=== PATIENT | female | born 1985 | race Two or more races ===

== ENCOUNTER 2025-07-14 12:26 | Emergency (ER) | payer BC, SELFPAY ==
[2025-07-14 12:41] VITALS: BP 131/86; PULSE 95; RESP 18; TEMP 37.6; O2SAT 100
--- NOTE | 2025-07-14 12:52 | ED.ABDPAIN ---
HPI - Abdominal Pain General Time Seen by Provider: 12:54 Date Seen: 07/14/25 Chief Complaint: Abdominal Pain Stated Complaint: Abdominal pain, dizziness Time Seen by Provider: 07/14/25 12:37 Source: patient and RN notes reviewed Mode of arrival: ambulatory Limitations: no limitations History of Present Illness HPI narrative: This 39-year-old female is coming into the ER with lower pelvic pain for about a week. It awoke her overnight at 2:00 a.m. with sharp and severe pain. She has tried azo but is not change her symptoms. She is feeling nauseated with this. She has not vomited yet, was able to eat earlier today. Has noted some dysuria and urinary frequency, azo did not improve her symptoms. She had her last menstrual period about 2 weeks ago, has had a tubal ligation. She has a history of ovarian cysts, this pain is more severe. She has not noted any fevers. Pain really intensified overnight, she feels the pain in the lower pelvic area on both sides, feels pain going down into her vaginal area. She denies any vaginal discharge. She is here with her life partner, the only person she has been with, there is no concern for any STIs, no history of STIs, again, no vaginal discharge. She noted a little softer stool this morning but has not had any changes in bowel habits otherwise. MD elicited complaint: abdominal pain Related Data Allergies Allergy/AdvReac Type Severity Reaction Status Date / Time No Known Drug Allergies Allergy Verified 07/14/25 14:52 Review of Systems Status of ROS Reports: 6 or more systems reviewed and unremarkable except as noted in History and below [facility] Medical History (Updated 07/14/25 @ 16:32 by Renae Cordoba MD) tubal ligation planned Social History Smoking Status: Never smoker Do you use any of these nicotine containing products: None How often do you have a drink containing alcohol: never AUDIT-C Alcohol total score: 0 Non-prescribed substance use: denies use Exam Const: Vital Signs, click to edit/add: Vital Signs - 24 hr 07/14/25 12:41 07/14/25 13:11 07/14/25 15:22 Temperature 99.7 F H 97.2 F L Pulse Rate [Pulse Oximeter] 95 79 Respiratory Rate 18 18 Blood Pressure [Ri ght Upper Arm] 131/86 108/69 Pulse Oximetry 100 98 99 Oxygen Delivery Me thod Room Air Room Air This 39-year-old female is alert, interactive, looks uncomfortable, sitting on the edge of the bed tentatively in exam room 6. Sclera clear, extraocular muscles intact, symmetrical facial function, speech normal. Lungs are clear, good air entry, no wheezing crackles, no tachypnea, no accessory muscle use. CV regular rate and rhythm, no murmur, normal S1-S2, no S3-S4. Abdomen is soft, normal bowel sounds, no organomegaly noted. She is not tender with the exception of the central pelvic area. Pain is more centrally over the suprapubic area, does extend a little bit both to right and left lower quadrants but seems to be more central over the suprapubic or pelvic area. Bimanual exam deferred at this point. No inguinal adenopathy or masses noted. Do note patient's temperature on arrival but she is wearing a stocking cap. Documenting provider has reviewed patient's vital signs: yes Course Course ED Course: Patient is having significant pain, LMP was about 2 weeks ago, could be consistent with ovarian cyst in need to ensure no torsion if there would be an ovarian cyst. Other potential etiologies are urinary system issues like UTIs or potential kidney stone but does not seem is likely given her presentation. Pelvic inflammatory disease less likely given her history but will be considered. Atypical presentation of something like appendicitis will be considered. We are going to start with a pelvic ultrasound, full complement of labs including urine. If need be, the understand that we may need to proceed to CT imaging. We will establish an IV, start with some Zofran and Toradol for nausea and pain control. If Toradol is not sufficient, will move to narcotic pain management. Reevaluation(s) Time of Reevaluation #1: 14:03 Reevaluation #1: Have reviewed with patient there is a small cyst but nothing that would see responsible for her symptoms. She is just getting her IV fluids, Zofran and Toradol right now. Will see if these help her. She has slight elevation of her neutrophils. Urinalysis has not been collected yet. We will proceed with CT abdomen pelvis with IV contrast for further evaluation of her pain. Time of Reevaluation #2: 16:24 Reevaluation #2: Patient is feeling better after Toradol. We have reviewed that her imaging of her abdomen pelvis CT and ultrasound are not showing any acute pathology. There is no definitive pathology on her labs. We did discuss the urinalysis is not definitively showing a UTI but if urine culture were to grow anything, we will start her on antibiotic. Will send her with Toradol, she will take from [facility]. Do not want to mask anything in this patient and it did seem to help her. She does note that her mom had ovarian or uterine cancer, reviewed with her that there is no apparent acute abnormality on the pelvic ultrasound that would be consistent with anything concerning of that nature at this time. I have requested that she follow up in clinic. We have discussed signs and symptoms for return. Vital Signs Vital signs: Initial Vital Signs Temperature 99.7 F H 07/14/25 12:41 Temperature Source Temporal Artery Scan 07/14/25 12:41 Pulse Rate 95 07/14/25 12:41 Respiratory Rate 18 07/14/25 12:41 Blood Pressure 131/86 07/14/25 12:41 Blood Pressure Mean 101 07/14/25 12:41 Pulse Oximetry 100 07/14/25 12:41 Oxygen Delivery Method Room Air 07/14/25 12:41 Vital Signs Temperature 99.7 F H 07/14/25 12:41 Pulse Rate 95 07/14/25 12:41 Respiratory Rate 18 07/14/25 12:41 Blood Pressure 131/86 07/14/25 12:41 Pulse Oximetry 100 07/14/25 12:41 Oxygen Delivery Method Room Air 07/14/25 12:41 Temperature 97.2 F L 07/14/25 15:22 Pulse Rate 79 07/14/25 15:22 Respiratory Rate 18 07/14/25 15:22 Blood Pressure 108/69 07/14/25 15:22 Pulse Oximetry 99 07/14/25 15:22 Oxygen Delivery Method Room Air 07/14/25 15:22 Medications Administered Medications: Discontinued Medications Generic Name Dose Route Start Last Admin Trade Name Freq PRN Reason Stop Dose Admin Sodium Chloride 1,000 mls @ 500 mls/hr 07/14/25 13:13 07/14/25 14:05 0.9 % Sodium Chloride 1000 Ml IV 07/14/25 15:12 500 mls/hr .Q2H INEZ Administration Ketorolac Tromethamine 15 mg 07/14/25 13:11 07/14/25 14:07 Ketorolac 15 Mg/Ml Inj IVP 07/14/25 13:12 15 mg ONCE ONE Administration Ondansetron HCl 4 mg 07/14/25 13:11 07/14/25 14:07 Ondansetron 2 Mg/Ml Inj IVP 07/14/25 13:12 4 mg ONCE ONE Administration MDM - Abdominal Pain Lab Data Attestation: I reviewed the patient's lab results. Labs: Lab Results 07/14/25 07/14/25 Range/Units 13:22 14:19 WBC 10.74 (4.50-11.00) K/uL RBC 4.35 (4.00-5.20) m/uL Hgb 12.6 (12.0-16.0) gm/dL Hct 38.5 (33.0-51.0) % MCV 89 (80-100) fL MCH 29 (26-34) pg MCHC 33 (32-36) gm/dL RDW Coeff of Sia 13.0 (11.5-15.5) % Plt Count 218 (140-440) K/uL Neut % (Auto) 74.2 H (42.0-72.0) % Lymph % (Auto) 18.6 L (20-44) % [place] % (Auto) 5.7 (0.0-11.0) % Eos % (Auto) 0.9 (0.0-7.0) % Baso % (Auto) 0.3 (0.0-3.0) % Neut # (Auto) 8.00 H (1.7-7.0) K/uL Lymph # (Auto) 2.00 (0.90-2.90) K/uL [place] # (Auto) 0.60 (0.00-0.90) K/UL Eos # (Auto) 0.10 (0.00-0.50) K/uL Baso # (Auto) 0.03 (0.00-0.30) K/uL Abs Immat Gran (auto) 0.03 (0.00-0.30) K/uL Imm/Tot Granulo (auto) 0.3 % Sodium 137 (135-149) mmol/L Potassium 3.9 (3.6-5.1) mmol/L Chloride 99 (96-114) mmol/L Carbon Dioxide 23 (20-32) mmol/L Anion Gap 15 (7-15) mEq/L BUN 13 (5-24) mg/dL Creatinine 0.7 (0.5-1.5) mg/dL Estimated GFR 112 ml/min Glucose 97 (60-115) mg/dL Lactate 0.6 (0.5-1.9) mmol/L Calcium 9.5 (8.4-10.6) mg/dL Total Bilirubin 0.4 (0.1-1.5) mg/dL AST 49 H (12-35) U/L ALT 65 H (4-35) U/L Alkaline Phosphatase 56 (40-150) U/L C-Reactive Protein 0.8 (0.5-1.0) mg/dL Total Protein 8.4 H (6.0-8.3) g/dL Albumin 4.8 (3.3-5.0) g/dL Urine Color Yellow (Yellow) Urine Appearance Clear (Clear) Urine pH 7.0 (5.0-8.5) Ur Specific [place] 1.015 (1.000-1.030) Urine Protein Negative (Negative) Urine Glucose (UA) Negative (Negative) Urine Ketones Negative (Negative) Urine Blood 1+ A (Negative) Urine Nitrite Negative (Negative) Urine Bilirubin Negative (Negative) Urine Urobilinogen 0.2 (0.2-1.0) Ur Leukocyte Esterase 1+ A (Negative) Urine RBC 0-2 (0-2) Urine WBC 5-10 A (0-5) Ur Squamous Epith Cells None (None-Few) Urine Bacteria Few A (None) Urine HCG, Qual Negative (Negative) Imaging Data US pelvis: Attestation: I have reviewed the pertinent imaging results. Radiologist's impression: Patient: GONZALO PRAKASH Facility:?[facility] Patient ID:?[id number] Site Patient ID:?[id number]. Site :?[id number] Study:?US-Pelvis -07/14/2025 1:49:22 PM Ordering Physician:Richi Macdonald Final Report: INDICATION: Severe pelvic pain. TECHNIQUE: Ultrasound pelvis transabdominal and transvaginal for better assessment or to better visualize the endometrium. Real-time sonographic images with spectral and color Doppler imaging of the ovaries were obtained. COMPARISON: None. FINDINGS: Uterus: 8.7 x 4.5 x 4.4 cm. Normal echotexture of the myometrium. No masses. Endometrium: Transvaginal imaging was performed to better evaluate the endometrium. Endometrial thickness measures 9 mm. No sign of endometrial mass or fluid. Right ovary 3.3 x 2.9 x 2.6 centimeters. Left ovary 3.1 x 1.6 x 2.8 centimeter. Tiny 1.7 centimeter simple appearing left paraovarian cyst. No ovarian or adnexal masses. Normal arterial and venous blood flow is demonstrated in both ovaries. Cul-de-sac: Trace free fluid. IMPRESSION: Tiny 1.7 centimeter simple appearing left paraovarian cyst. Otherwise, unremarkable pelvic ultrasound for age. No torsion. Dictated by Roly Cunningham MD @ 07/14/2025 1:55:49 PM (Electronic Signature) CT scan - abdomen: Attestation: I have reviewed the pertinent imaging results. Radiologist's impression: Patient: GONZALO PRAKASH Facility:?[facility] Patient ID:?[id number] Site Patient ID:?[id number]. Site :?[id number] Study:?CT-Abdomen/Pelvis 78CC ISOVUE 370-07/14/2025 2:54:08 PM Ordering Physician:Richi Macdonald Final Report: INDICATION: Severe pelvic pain. TECHNIQUE: CT abdomen and pelvis acquired with 78 cc Omnipaque 350 IV contrast. COMPARISON: None. FINDINGS: Lower chest: Scattered atelectasis. Liver: Unremarkable. Normal in size and attenuation. No suspicious masses. Gallbladder and bile ducts: Prior cholecystectomy. Pancreas: Unremarkable. No mass or inflammation. Spleen: Unremarkable. Normal in size. No masses. Adrenal glands: Unremarkable. No nodules. Kidneys: Unremarkable. No suspicious masses, stones, or hydronephrosis. GI tract: Colonic diverticulosis without diverticulitis. Normal in caliber. No sign of mass or inflammation. Normal appendix. Vasculature: Abdominal aorta is normal in caliber. Mesenteric arteries are patent. Lymph nodes: No lymphadenopathy. Peritoneum/Abdominal Wall: Unremarkable. No sign of mass or infiltration. No free air or significant free fluid. Pelvis: Tiny right corpus luteal cyst with trace free fluid in the pelvis likely physiologic. Bones: Unremarkable for age. IMPRESSION: No acute intra-abdominal/pelvic abnormality. Tiny right corpus luteal cyst with trace free fluid in the pelvis likely physiologic. Please note that all CT scans at this facility use dose modulation, iterative reconstruction, and/or weight-based dosing when appropriate to reduce radiation dose to as low as reasonably achievable. Dictated by Roly Cunningham MD @ 07/14/2025 3:16:09 PM (Electronic Signature) Discharge Plan Discharge Clinical Impression: Abdominal pain, suprapubic Patient Disposition: Home, Self-Care Condition: Stable Instructions: Pelvic Pain in Women (ED) Additional Instructions: Use Tylenol 1000 mg 3 times a day baseline for pain. Can use the Toradol 10 mg 1 every 6 hours as needed for extra pain control, take with food to protect your stomach. Request that you get a follow-up clinic appointment within the next week. We will let you know if the urine culture does grow anything and start antibiotics if needed. Right now on the labs and imaging done with CT of abdomen and pelvis and pelvic ultrasound, there is no identifiable cause of your symptoms. If you develop fevers, have worsening pain, have new or concerning symptoms, please seek re-evaluation. Activity Level: Activity as Tolerated Discharge Diet: Regular Follow Up/Referrals: Provider,Not a Local [Primary Care Provider, Family Practice] Stand Alone Forms: [employer] Info Instructions
[2025-07-14 13:11] VITALS: O2SAT 98
--- NOTE | 2025-07-14 13:11 | CRLHL7_ITS ---
For Patients: As a result of the Century Cures Act, medical imaging exams and procedure reports are released immediately into your electronic medical record. You may view this report before your referring provider. If you have questions, please contact your health care provider. INDICATION: Severe pelvic pain. TECHNIQUE: Ultrasound pelvis transabdominal and transvaginal for better assessment or to better visualize the endometrium. Real-time sonographic images with spectral and color Doppler imaging of the ovaries were obtained. COMPARISON: None. FINDINGS: Uterus: 8.7 x 4.5 x 4.4 cm. Normal echotexture of the myometrium. No masses. Endometrium: Transvaginal imaging was performed to better evaluate the endometrium. Endometrial thickness measures 9 mm. No sign of endometrial mass or fluid. Right ovary 3.3 x 2.9 x 2.6 centimeters. Left ovary 3.1 x 1.6 x 2.8 centimeter. Tiny 1.7 centimeter simple appearing left paraovarian cyst. No ovarian or adnexal masses. Normal arterial and venous blood flow is demonstrated in both ovaries. Cul-de-sac: Trace free fluid. IMPRESSION: Tiny 1.7 centimeter simple appearing left paraovarian cyst. Otherwise, unremarkable pelvic ultrasound for age. No torsion. Dictated by Roly Cunningham MD @ 07/14/2025 1:55:49 PM (Electronically Signed)
--- OUTSIDE RECORDS SUMMARY | 2025-07-14 13:25 | XMS_ITS | Clinical Summary ---
Author Organization [facility] Address [address] [place] [id number] Care Team Providers Care Budget Engineer Name Role Phone Sherri Mary Primary Care Provider [phone] Allergies No known active allergies Medications methylPREDNISol one (Medrol (South)) 4 mg tabletIndicatio ns:Tailor's bunionette, right,Foot pain, right Take by mouth as instructed per packaging. 21 Tablet Active Additional Information Patient not taking.Reported on 07/14/2025 Active Problems Problem Noted Date Diagnosed Date Prediabetes 03/08/2025 Pelvic pain 03/08/2025 Tremor 03/08/2025 Hepatic adenoma 03/08/2025 Tailor's bunionette, right 03/08/2025 Liver lesion 09/15/2022 Overview (09/15/2022): Needs follow up MRI in Aug 2023. Sherri Mary PA-C, Family Medicine.....................09/15/2022 11:37 AM Gastritis Resolved Problems Problem Noted Date Diagnosed Date Resolved Date Pap smear for cervical cancer screening 10/17/2023 03/08/2025 Overview (10/17/2023): 09/2023 NIL/HPV negative. Plan: Pap/HPV due 09/2028. No Significant Past Medical History 04/13/2021 03/08/2025 Encounters Date Type Department Care Team Description 07/14/2025 11:35 AM [employer]AL [employer] Office Visit [facility] [address] [place] [address] Kim Ernandez PA UTI (x1 week, burning, frequency, pain, using azo x2 days) 07/14/2025 Travel from Last 3 Months Immunizations Immunization Administration Dates Next Due Influenza Virus, Unspecified 07/12/2015,05/14/20 14,05/29/2013 Influenza, IIV4 05/28/2020 Influenza, IIV4 (=>6mos) MDV 07/12/2015 Tdap 05/28/2020 Family History Medical History Relation Name Comments Cancer-breast Maternal Aunt Cancer-ovarian Mother Relation Name Status Comments Maternal Aunt Mother Social History Tobacco Use Types Packs/Day Years Used Date Smoking Tobacco: Never Smokeless Tobacco: Never Alcohol Use Standard Drinks/Week Comments Not Currently 0 (1 standard drink = 0.6 oz pur e alcohol) PHQ-2 Answer Date Recorded PHQ-2 TOTAL SCORE 0 03/05/2025 Social Connections Answer Date Recorded Do you often feel lonely or isolated from those around you? 0 03/05/2025 Financial Resource Strain Answer Date R ecorded Difficulty of Paying Living Expenses 3 03/05/2025 Difficulty of Paying Living Expenses Not on file 03/05/2025 Food Insecurity Answer Date Recorded Do you worry your food will run out before you are able to buy more? 1 03/05/2025 Transportation Needs Answer Date Record ed Does lack of transportation keep you from medica l appointments? 1 03/05/2025 Does lack of transportation keep you from work, meetings or getting things that you need? 1 03/05/2025 Housing Stability Answer Date Recorded What is your housing situation today? 1 03/05/2025 Utilities Answer Date Recorded Do you have trouble paying f or utilities (for example, heat, electricity, water, phone)? 1 03/05/2025 Comments No Sex and Gender Information Value Date Recorded Sex Assigned at Not on file Legal Sex Female 4:42 PM CDT Gender Identity Not on file Sexual Orientation Not on file Occupation Industry Job Start Date Job End Date homemaker Not on file Not on file Not on file Obstetrics History Para Term AB IAB SAB Ectopic Multiple Livin g Live Births 2 2 2 Date Outcome GA Total Labor Labor/2nd/3rd Weight Sex Type Anes PTL Sera A1 A5 Name Clin Term Vag Term C-Secti on, B Last Filed Vital Signs Vital Sign Reading Time Taken Comments Blood Pressure 118/79 07/14/2025 11:45 AM [employer] Pulse 98 07/14/2025 11:45 AM [employer] Temperature 35.9 C (96.7 F) 09/14/2022 10:37 AM [employer] Respiratory Rate 18 09/14/2022 10:37 AM [employer] Oxygen Saturation 97% 07/14/2025 11:45 AM [employer] Inhaled Oxygen Concentration - - Weight 72.1 kg (159 lb) 07/14/2025 11:45 AM [employer] Height 158 cm (5' 2.21) 03/05/2025 2:35 PM CDT Body Mass Index 28.89 03/05/2025 2:35 PM CDT Plan of Treatment Health Maintenance Due Date Last Done Comments HIV for age 15-65 12/29/1999 Hepatitis C screening for age 18-79 2002 Hepatitis B series for 19+ (1 of 3 - 19+ 3-dose series) 12/29/2003 HPV series for age 9-45 (1 - 3-dose SCDM series) 12/29/2011 COVID-19 vaccine series ( season) 2025 Influenza Vaccine (#1) 2025 0, 07/12/2015, 07/12/2015, Additional history exists BMI (ht and wt on same day) for age 18+ 03/05/2026 03/05/2025, 10/09/2023, 09/14/2022, Additional history exists Depression screening for age 12+ 03/05/2026 03/05/2025, 10/09/2023, 04/13/2021, Additional history exists Pap test for age 21-65 10/09/2028 , 10/09/2023, 05/28/2020 Tetanus booster 05/28/2030 05/28/2020 RSV vaccine for adults or (1 - 1-dose 75+ series) 12/29/2059 Pneumococcal series for age 6-49 Aged Out No longer eligible based on patient's age to complete this topic Procedures Procedure Name Priority Date/Time Associated Diagnosis Comments HPV HIGH RISK Routine 10/09/2023 8:43 AM [employer] Screening for malignant neoplasm of cervix from Last 3 Months or Most Recently Relevant to Health Maintenance Results * HPV HIGH RISK (10/09/2023 8:43 AM [employer]) TYPE 16 Negative Negative 10/12/2023 1:39 PM [employer] [facility] TYPE 18 Negative Negative 10/12/2023 1:39 PM [employer]INCIPAL [employer] [facility] OTHER HIGH RISK TYPES Negative Negative 10/12/2023 1:39 PM PR[employer]IPAL [employer]CH[employer] [facility] Other (Cervical) Non-Blood / Unknown 10/09/2023 8:43 AM [employer] 10/10/2023 11:53 AM [employer] Narrative [facility] - 10/12/2023 1:39 PM [employer] HPV types 16, 18, 31, 33, 35, 39, 45, 51, 52, 56, 58, 59, 66 and 68 DNA were undetectable or below the pre-set threshold. Methodology: Alan Citlali 4800 HPV Test us Sherri [facility] [employer] Final Resu lt [facility] [address] [place] [address], from Last 3 Months or Most Recently Relevant to Health Maintenance Insurance [facility] [place] Advance Directives * Full Code (Latest Code Status on File) Date Activated Date Inactivated Comments 08/15/2022 10:33 AM 08/15/2022 2:54 PM Question Answer Comments Code Status Discussion: Discussed * Full Code Date Activated Date Inactivated Comments 06/29/2021 6:36 AM 06/30/2021 2:31 AM Question Answer Comments Code Status Discussion: Reviewed Preferences Care Teams Budget Engineer Relationship Specialty Start Date End Date Sherri Mary PA [address] [place] [id number] PCP - General Physician Molasses Coloring Operator 03/20/23
[2025-07-14 13:31] LABS: Lactate* 0.6 mmol/L (0.5-1.9)
[2025-07-14 13:33] LABS: Hematocrit* 38.5 % (33.0-51.0); Hemoglobin* 12.6 gm/dL (12.0-16.0); Immature Granulocytes Abs Auto 0.03 K/uL (0.00-0.30); Immature Granulocytes Pct Auto 0.3 %; Lymphocytes Absolute Auto 2.00 K/uL (0.90-2.90); Mean Corpuscular HGB Conc 33 gm/dL (32-36); Mean Corpuscular Hemoglobin 29 pg (26-34); Mean Corpuscular Volume 89 fL (80-100); RDW Coefficient of Variation % 13.0 % (11.5-15.5); Red Blood Count* 4.35 m/uL (4.00-5.20); White Blood Count* 10.74 K/uL (4.50-11.00)
[2025-07-14 13:42] LABS: Slide Review Reflex No
[2025-07-14 13:53] LABS: Albumin* 4.8 g/dL (3.3-5.0); Chloride* 99 mmol/L (96-114); Potassium* 3.9 mmol/L (3.6-5.1); Sodium* 137 mmol/L (135-149)
[2025-07-14 13:56] LABS: Alanine Aminotransferase* 65 U/L (4-35); Alkaline Phosphatase* 56 U/L (40-150); Anion Gap 15 mEq/L (7-15); Aspartate Amino Transferase* 49 U/L (12-35); Bilirubin Total* 0.4 mg/dL (0.1-1.5); Blood Urea Nitrogen* 13 mg/dL (5-24); Carbon Dioxide* 23 mmol/L (20-32); Creatinine* 0.7 mg/dL (0.5-1.5); Estimated Glomerular Filt Rate 112 ml/min; Total Protein* 8.4 g/dL (6.0-8.3)
[2025-07-14 13:57] LABS: Calcium* 9.5 mg/dL (8.4-10.6); Glucose* 97 mg/dL (60-115)
[2025-07-14] MEDS: ONDANSETRON 2 MG/ML inj 4 MG IVP (14:07)
--- NOTE | 2025-07-14 14:07 | CRLHL7_ITS ---
For Patients: As a result of the Century Cures Act, medical imaging exams and procedure reports are released immediately into your electronic medical record. You may view this report before your referring provider. If you have questions, please contact your health care provider. INDICATION: Severe pelvic pain. TECHNIQUE: CT abdomen and pelvis acquired with 78 cc Omnipaque 350 IV contrast. COMPARISON: None. FINDINGS: Lower chest: Scattered atelectasis. Liver: Unremarkable. Normal in size and attenuation. No suspicious masses. Gallbladder and bile ducts: Prior cholecystectomy. Pancreas: Unremarkable. No mass or inflammation. Spleen: Unremarkable. Normal in size. No masses. Adrenal glands: Unremarkable. No nodules. Kidneys: Unremarkable. No suspicious masses, stones, or hydronephrosis. GI tract: Colonic diverticulosis without diverticulitis. Normal in caliber. No sign of mass or inflammation. Normal appendix. Vasculature: Abdominal aorta is normal in caliber. Mesenteric arteries are patent. Lymph nodes: No lymphadenopathy. Peritoneum/Abdominal Wall: Unremarkable. No sign of mass or infiltration. No free air or significant free fluid. Pelvis: Tiny right corpus luteal cyst with trace free fluid in the pelvis likely physiologic. Bones: Unremarkable for age. IMPRESSION: No acute intra-abdominal/pelvic abnormality. Tiny right corpus luteal cyst with trace free fluid in the pelvis likely physiologic. Please note that all CT scans at this facility use dose modulation, iterative reconstruction, and/or weight-based dosing when appropriate to reduce radiation dose to as low as reasonably achievable. Dictated by Roly Cunningham MD @ 07/14/2025 3:16:09 PM (Electronically Signed)
[2025-07-14 14:25] LABS: Appearance Urine Clear (Clear)
[2025-07-14 14:29] LABS: Ur HCG Qualitative* Negative (Negative)
[2025-07-14 15:22] VITALS: BP 108/69; PULSE 79; RESP 18; TEMP 36.2; O2SAT 99
--- NOTE | 2025-07-18 13:50 | ED.NURSE ---
Left a message for a call back. Will attempt to clarify if Pt is currently on abx and if so, which abx.
== END 2025-07-14 17:14 | disposition home or self-care (01) ==
PROVIDERS: Emergency Provider Family Medicine
DX: R10.24 Suprapubic pain (principal)
CPT/HCPCS: 36415; 74177; 76830; 76856; 80053; 81001; 81025; 83605; 85025; 86140; 87086; 93976; 94761; 96374; 96375; 99284; 99285; J1885; J2405; J7030; Q9967